=== PATIENT | male | born 1970 ===

== ENCOUNTER 2019-09-13 08:00 | Outpatient (CLI) | payer OTHER, SELFPAY ==
--- NOTE | 2019-09-18 12:26 | SLEEP_ITS ---
Home sleep test. DATE OF STUDY: 09/13/2019 REASON FOR THIS STUDY: Sleep apnea, unspecified. HISTORY: This patient is a 49-year-old male, 62 inches tall, weighing 210 pounds with a body mass index of 26.9. He has a history of severe snoring for years and witnessed apneas according to his . This is moderately severe. He had rhinoplasty/septoplasty in 1995 to help with snoring, which did not improve his symptoms. He frequently snores and it is frequently loud enough that others complain. He rarely wakes up from sleep short of breath. He rarely awakens at night with heartburn, belching, or coughing. He occasionally has trouble sleeping with a cold. He rarely gasps for breath at night. He frequently has been told by others that he has apnea and he frequently sweats excessively at night. He does not have palpitations at night, does not fall asleep during the day, involuntarily or while driving. He does not have loss of muscle tone with strong emotion, daytime difficulties due to sleepiness. The feeling of paralysis on waking or falling asleep nor does he have vivid dreamlike scenes upon awakening or falling asleep. He is never afraid to go to sleep. He does not have nightmares. He frequently remembers his dreams. He frequently has racing thoughts. He does not feel sad or depressed. He rarely has anxiety. He does not have muscular tension. He does not notice parts of his body jerking. He occasionally kicks at night, occasionally has crawling and aching feelings in his legs and occasionally has leg pain at night. He never has morning jaw pain. He denies grinding his teeth at night, is not bothered by pain during the day or awakened by pain at night. He rarely wakes up feeling stiff in the morning, rarely has sore achy muscles and rarely wakes up with pain in the neck and spine. He has GERD and takes antacids. Normal bedtime is 11:00 p.m., taking 30 minutes to fall asleep, typically waking twice at night for 5 minutes during which time he will go to the bathroom. He wakes for the day at 07:00 a.m. Weekend schedule shows that he goes to bed 2 hours later at 01:00 a.m., and wakes 2 hours later, 09:00 a.m. He does not take naps. On occasion, a short nap might be refreshing. Most of the time he feels good in the morning. MEDICAL COMORBIDITIES: High blood pressure, acid reflux, seasonal allergies, rhinoplasty, septoplasty 1996, chest pain, erectile dysfunction, loud snoring. MEDICATIONS: 1. Lisinopril 20 mg daily. 2. Aspirin 1 daily. 3. Hydrochlorothiazide 25 mg daily. 4. Omeprazole 20 mg per day. HABITS: Never smoked tobacco. No caffeine. Two beers daily. No recreational drugs. DESCRIPTION OF THE STUDY: On the [place] Sleepiness Scale, his score is 0. This was conducted as unattended home sleep test using 4 channel monitoring including respiratory effort channel, snoring channel, oxygen saturation channel, and heart rate channel. The study was scored using [facility] guidelines. Duration of the study 6 hours 32 minutes. The apnea-hypopnea index was 26. Oxygen desaturation index 23. Lowest desaturation 80%. He had 54 apneas. 30% of the apneas or 16 were obstructive, 70% of the apneas or 38 were central. He had 114 hypopneas. He had 867 snoring events and desaturated 150 times. He spent 12 minutes or 3% of the study below 88% saturation. Heart rate ranged from 76 to 107. Of note, the patient mentioned that he did not sleep much of the night, felt that he was awake for a large portion of it. ASSESSMENT: 1. This home sleep test shows at least moderate sleep-disordered breathing G47.33 with mixed events obstructive 1/3 and central 2/3. If the patient was awake for much of this study, some of the centrals that were scored might have been pauline
== END 2019-09-13 08:01 | disposition home or self-care (01) ==
LOC: ANHCSM 08:00
DX: G47.30 Sleep apnea, unspecified (principal); R06.83 Snoring; I10 Essential (primary) hypertension; Z79.82 Long term (current) use of aspirin
CPT/HCPCS: 95806